=== PATIENT | male | born 1985 | race Caucasian/White ===

== ENCOUNTER 2018-08-27 14:01 | Emergency (ER) | payer SELFPAY ==
[~2018-08-27] VITALS: Ht 167.6 cm; Wt 81.8 kg
[2018-08-27 14:08] VITALS: BP 150/85
== END 2018-08-27 16:00 | disposition left against medical advice (07) ==
LOC: EMS 14:02
DX: R10.11 Right upper quadrant pain (principal); Z53.21 Procedure and treatment not carried out due to patient leaving prior to being seen by health care provider